=== PATIENT | female | born 1990 | race Caucasian/White ===

== ENCOUNTER 2018-03-08 21:37 | Emergency (ER) | payer OTHER ==
[~2018-03-08] VITALS: Ht 165.1 cm; Wt 73.9 kg
[2018-03-08 22:04] LABS: URINE BILIRUBIN NEGATIVE (Negative); URINE BLOOD 3+ (Negative); URINE CLARITY CLEAR; URINE COLOR YELLOW; URINE GLUCOSE-RANDOM* NEGATIVE (Negative); URINE KETONES NEGATIVE (Negative); URINE LEUKOCYTES NEGATIVE (Negative); URINE NITRITE NEGATIVE (Negative); URINE PROTEIN (DIPSTICK) NEGATIVE (Negative); URINE SPECIFIC GRAVITY 1.025 (1.005-1.035); URINE UROBILINOGEN 0.2 E.U./dl (0.2-1.0)
[2018-03-08 22:11] LABS: CASTS None Seen /LPF (None Seen); MUCUS 0-3 Light strn/LPF (None Seen); SQUAMOUS 0-3 Few /LPF (0-3); URINE WBC None Seen /HPF (0-5)
[2018-03-08 22:12] LABS: BACTERIA 1-9 Few /HPF (None Seen); CRYSTALS None Seen /LPF (None Seen); URINE RBC >20 Many /HPF (0-2)
[2018-03-09 00:44] VITALS: BP 114/60
== END 2018-03-09 00:50 | disposition home or self-care (01) ==
LOC: ER 21:37
PROVIDERS: Emergency Medicine
DX: R51 Headache (principal); R11.2 Nausea with vomiting, unspecified